=== PATIENT | male | born 1965 | race African-American/Black ===

== ENCOUNTER 2017-03-22 08:51 | Inpatient (IN) | payer BC ==
[2017-03-22 09:50] VITALS: BMI 28.7
--- NOTE | 2017-03-22 13:58 | HP ---
CIWA Score - CIWA Score Nausea/Vomitin-No Nausea/No Vomiting Muscle Tremors: 4-Moderate,w/Arms Extend Anxiety: 2 Agitation: 1-Slight > Activity Paroxysmal Sweats: 3 Orientation: 0-Oriented Tacttile Disturbances: 2-Mild Itch/Numbness/Burn Auditory Disturbances: 0-None Visual Disturbances: 3-Moderate Sensitivity Headache: 0-None Present CIWA-Ar Total Score: 15 Admission ROS BHS - HPI Chief Complaint: "I'm here to clean my act up and to take care of myself." Patient is here to Detox from Alcohol. Allergies/Adverse Reactions: Allergies Allergy/AdvReac Type Severity Reaction Status Date / Time shrimp Allergy Intermediate Difficulty Verified 03/22/17 12:41 Breathing History of Present Illness: Patient is a 51 YO male here to Detox from Alcohol. This is patient's first detox admission at [facility]. Patient had a Detox admissions at [facility] (2013), [facility] in [address] [facility] in 2008. Longest Period of sobriety in recent years: approx. 1 year (2013). Exam Limitations: No Limitations - Ebola screening Have you traveled outside of the country in the last 21 days: No (N) Have you had contact with anyone from an Ebola affected area: No Have you been sick,other than usual withdrawal symptoms: No Do you have a fever: No - Review of Systems Constitutional: Diaphoresis, Loss of Appetite, Malaise, Unintentional Wgt. Loss (Lost approx. 15 lbs. over last 4 months.) EENT: reports: Blurred Vision Respiratory: reports: SOB with Exertion, Productive cough Cardiac: reports: No Symptoms Reported GI: reports: No Symptoms Reported : reports: No Symptoms Reported Musculoskeletal: reports: No Symptoms Reported Integumentary: reports: No Symptoms Reported Neuro: reports: No Symptoms reported, Tremors Endocrine: reports: No Symptoms Reported Hematology: reports: No Symptoms Reported Psychiatric: reports: Judgement Intact, Mood/Affect Appropiate, Orientated x3 Other Systems: Reviewed and Negative Patient History - Patient Medical History Hx Anemia: No Hx Asthma: Yes (Uses Albuterol Inhaler.) Hx Chronic Obstructive Pulmonary Disease (COPD): No Hx Cancer: No Hx Cardiac Disorders: No Hx Congestive Heart Failure: No Hx Hypertension: No Hx Hypercholesterolemia: No Hx Pacemaker: No HX Cerebrovascular Accident: No Hx Seizures: No Hx Dementia: No Hx Diabetes: Yes (Metformin; Took Lantus Insulin in past, but not for approx. last 6 months.) Hx Gastrointestinal Disorders: No Hx Liver Disease: No Hx Genitourinary Disorders: No Hx Sexually Transmitted Disorders: No Hx Renal Disease (ESRD): No Hx Thyroid Disease: No Hx Human Immunodeficiency Virus (HIV): No (Last Tested: 11/2016: NEGATIVE.) Hx Hepatitis C: No (Last Tested: 11/2016: NEGATIVE.) Hx Depression: No Hx Suicide Attempt: No (PATIENT DENIES CURRENT SI / HI.) Hx Bipolar Disorder: No Hx Schizophrenia: No Other Medical History: DENIES. - Patient Surgical History Past Surgical History: Yes Hx Neurologic Surgery: No Hx Cataract Extraction: No Hx Cardiac Surgery: No Hx Lung Surgery: No Hx Breast Surgery: No Hx Breast Biopsy: No Hx Abdominal Surgery: No Hx Appendectomy: No Hx Cholecystectomy: No Hx Genitourinary Surgery: No Hx Orthopedic Surgery: No Other Surgical History: LFT FOOT AMPUTATION 2 TOES (1995). Anesthesia Reaction: No - PPD History Previous Implant?: No (2016) Documented Results: Negative w/o proof Implanted On Prior [facility] Admission?: No PPD to be Administered?: Yes - Reproductive History Patient is a Female of Child Bearing Age (11 -55 yrs old): No (PATIENT IS MALE.) - Smoking Cessation Smoking history: Current every day smoker Have you smoked in the past 12 months: Yes Aproximately how many cigarettes per day: 20 Cigars Per Day: 0 Hx Chewing Tobacco Use: Yes Initiated information on smoking cessation: Yes 'Breaking Loose' booklet given: 03/22/17 (GIVEN TO PATIENT.) - Substance & Tx. History Hx Alcohol Use: Yes Hx Substance Use: Yes Substance Use Type: Alcohol, Cocaine, Marijuana Hx Substance Use Treatment: Yes (Previous detox admissions; Most recent: [facility] (2013).) - Substances Abused Alcohol Route: Oral Frequency: Daily Amount used: 3 BEER A DAY Age of first use: 15 Date of Last Use: 03/21/17 Crack Route: Inhalation Frequency: 1-2 times per week Amount used: 2 BAGS Age of first use: 15 Date of Last Use: 03/21/17 Marijuana/Hashish Route: Smoking Frequency: 1-2 times per week Amount used: 2 JOINTS A WEEK Age of first use: 15 Date of Last Use: 03/21/17 Family Disease History - Family Disease History Family Disease History: Diabetes: Mother (HTN; .), Heart Disease: Mother , Other: Father (Used Alcohol, .) Admission Physical Exam [facility] - Vital Signs Vital Signs: Vital Signs - 24 hr 03/22/17 09:48 Temperature 96.4 F L Pulse Rate 78 Respiratory 20 Rate Blood Pressure 137/78 - Physical General Appearance: Yes: No Apparent Distress, Nourished, Appropriately Dressed , Tremorous HEENTM: Yes: Hearing grossly Normal, Normocephalic, Normal Voice, TOM, Pharynx Normal Respiratory: Yes: Chest Non-Tender, Lungs Clear, No Respiratory Distress, No Accessory Muscle Use Neck: Yes: No masses,lesions,Nodules, Supple, Trachea in good position Breast: Yes: Breast Exam Deferred Cardiology: Yes: Regular Rhythm, Regular Rate, S1, S2 Abdominal: Yes: Normal Bowel Sounds, Non Tender, Soft, Protuberent Genitourinary: Yes: Within Normal Limits Back: Yes: Normal Inspection Musculoskeletal: Yes: full range of Motion, Gait Steady Extremities: Yes: Normal Range of Motion, Non-Tender, Tremors Neurological: Yes: Fully Oriented, Alert, Normal Mood/Affect, Normal Response Integumentary: Yes: Normal Color, Dry, Warm Lymphatic: Yes: Within Normal Limits - Diagnostic (1) Alcohol dependence with uncomplicated withdrawal Current Visit: Yes Status: Acute (2) Cocaine dependence, uncomplicated Current Visit: Yes Status: Acute (3) Cannabis dependence, uncomplicated Current Visit: Yes Status: Acute (4) Nicotine dependence Current Visit: Yes Status: Chronic Qualifiers: Nicotine product type: cigarettes Substance use status: uncomplicated Qualified Code(s): F17.210 - Nicotine dependence, cigarettes, uncomplicated (5) History of type 2 diabetes mellitus Current Visit: Yes Status: Chronic (6) Asthma Current Visit: Yes Status: Chronic Qualifiers: Asthma severity: mild Asthma persistence: intermittent Asthma complication type: uncomplicated Qualified Code(s): J45.20 - Mild intermittent asthma, uncomplicated (7) History of amputation of lesser toe Current Visit: Yes Status: Resolved Qualifiers: Laterality: left Qualified Code(s): Z89.422 - Acquired absence of other left toe(s) Cleared for Admission [facility] - Detox or Rehab [facility] Level of Care: Medically Managed Detox Regimen/Protocol: Librium BHS Breath Alcohol Content Breath Alcohol Content: 0 Urine Drug Screen - Results Drug Screen Negative: No Urine Drug Screen Results: KEISHA-Cocaine
[2017-03-22] MEDS ORDERED: chlordiazePOXIDE HCL 25 MG CAPSULE PO PRN (14:34)
[2017-03-22] MEDS ORDERED: MAG HYDROX/AL HYDROX/SIMETH 30 ML UNIT-DOSE CUP PO PRN (14:34)
[2017-03-22] MEDS ORDERED: P-EPHED 60MG/TRIPROLIDI 2.5MG TABLET PO PRN (14:34)
[2017-03-22] MEDS ORDERED: ACETAMINOPHEN 325 MG TABLET (FP) PO PRN (14:34)
[2017-03-22] MEDS ORDERED: NICOTINE POLACRILEX 2 MG GUM BUC PRN (14:34)
[2017-03-22] MEDS ORDERED: MAGNESIUM HYDROX 2400MG/30ML ORAL SUSPENSION 30 ML CUP PO PRN (14:34)
[2017-03-22] MEDS ORDERED: MAGNESIUM CITRATE 300 ML BOTTLE PO PRN (14:34)
[2017-03-22] MEDS ORDERED: IBUPROFEN 400 MG TABLET (FP) PO PRN (14:34)
[2017-03-22] MEDS ORDERED: LOPERAMIDE HCL 2 MG CAPSULE PO PRN (14:34)
[2017-03-22] MEDS ORDERED: MENTHOL/PHENOL 1 EACH UD MM PRN (14:34)
[2017-03-22] MEDS ORDERED: guaiFENesin/D-METHORPHAN HB 10 ML UNIT-DOSE CUPS PO PRN (14:34)
[2017-03-22] MEDS ORDERED: ALBUTEROL SO4 18 GM HFA INHALER IH PRN (14:37)
[2017-03-22] MEDS ORDERED: chlordiazePOXIDE HCL 25 MG CAPSULE PO ONE (14:40)
[2017-03-22] MEDS: chlordiazePOXIDE HCL 25 MG CAPSULE PO SCH ×2 (16:11→22:20)
[2017-03-22] MEDS: metFORMIN HCL 500 MG TABLET (FP) PO SCH (16:16)
[2017-03-22] MEDS: AMMONIUM LACTATE 12% LOTION 225 GM BOTTLE TP SCH (16:16)
[2017-03-22] MEDS: INSULIN SLIDING SCALE (NOVOLOG) 1 VIAL SQ SCH (16:17)
[2017-03-22 16:50] LABS: URINE APPEARANCE CLEAR; URINE BILIRUBIN NEGATIVE (NEGATIVE); URINE BLOOD NEGATIVE (NEGATIVE); URINE COLOR YELLOW; URINE GLUCOSE (UA) NEGATIVE (NEGATIVE); URINE KETONE NEGATIVE (NEGATIVE); URINE LEUK ESTERASE NEGATIVE (NEGATIVE); URINE NITRITE NEGATIVE (NEGATIVE); URINE PROTEIN NEGATIVE (NEGATIVE); URINE UROBILINOGEN NEGATIVE mg/dL (0.2-1.0)
[2017-03-22 16:54] LABS: HEMATOCRIT 43.9 % (35.4-49); HEMOGLOBIN 14.7 GM/dL (11.7-16.9); MCH 31.2 pg (25.7-33.7); MCHC 33.5 g/dl (32.0-35.9); MEAN CELL VOLUME 93.2 fl (80-96); MEAN PLT VOLUME 9.5 fl (7.5-11.1); PLATELET COUNT 230 K/MM3 (134-434); RBC 4.71 M/mm3 (4.00-5.60); RDW 14.7 % (11.9-15.9); WHITE BLOOD COUNT 6.2 K/mm3 (4.0-10.0)
[2017-03-22 17:06] LABS: ALBUMIN 3.2 g/dl (3.4-5.0); ANION GAP 8 (8-16); BILIRUBIN,TOTAL 0.8 mg/dL (0.2-1.0); BLOOD UREA NITROGEN 11 mg/dL (7-18); CALCIUM 9.1 mg/dL (8.5-10.1); CHLORIDE 106 mmol/L (98-107); CO2 28 mmol/L (21-32); GLUCOSE,RANDOM 129 mg/dL (74-106); POTASSIUM 4.2 mmol/L (3.5-5.1); SGOT/AST 14 U/L (15-37); SGPT/ALT 17 U/L (12-78); SODIUM 142 mmol/L (136-145); TOT PROT 6.4 g/dl (6.4-8.2)
[2017-03-22 17:07] LABS: ALK PHOS 81 U/L (45-117)
[2017-03-22] MEDS: THIAMINE HCL 100 MG TABLET (FP) PO SCH (22:20)
[2017-03-23] MEDS: chlordiazePOXIDE HCL 25 MG CAPSULE PO SCH ×4 (05:59→22:19)
[2017-03-23] MEDS: metFORMIN HCL 500 MG TABLET (FP) PO SCH ×2 (07:05→18:16)
[2017-03-23] MEDS ORDERED: INSULIN (NOVOLOG) ASPART 100 UNITS/ML 10ML VIAL ONE (07:31)
[2017-03-23] MEDS: INSULIN SLIDING SCALE (NOVOLOG) 1 VIAL SQ SCH ×2 (08:00→17:45)
--- NOTE | 2017-03-23 09:54 | EKG ---
Test Reason : Blood Pressure : / mmHG Vent. Rate : 075 BPM Atrial Rate : 075 BPM P-R Int : 184 ms QRS Dur : 130 ms QT Int : 366 ms P-R-T Axes : 075 074 054 degrees QTc Int : 408 ms NORMAL SINUS RHYTHM NON-SPECIFIC INTRA-VENTRICULAR CONDUCTION BLOCK ABNORMAL ECG NO PREVIOUS ECGS AVAILABLE Confirmed by NATALIYA YU MD ([id number]) on 03/23/2017 9:53:51 AM Referred By: Confirmed By:NATALIYA YU MD
--- NOTE | 2017-03-23 10:32 | PN ---
S CIWA - CIWA Score Nausea/Vomitin Muscle Tremors: 3 Anxiety: 3 Agitation: 3 Paroxysmal Sweats: 3 Orientation: 0-Oriented Tacttile Disturbances: 1-Very Mild Itch/Numbness Auditory Disturbances: 0-None Visual Disturbances: 0-None Headache: 1-Very Mild CIWA-Ar Total Score: 17 S Progress Note (SOAP) Subjective: nausea, sweats, interrutped sleep, anxiety, tremors Objective: 03/23/17 10:31 Vital Signs - 24 hr 03/22/17 03/22/17 03/22/17 15:29 17:55 22:18 Temperature 97.3 F L 98.5 F 98.1 F Pulse Rate 79 75 74 Respiratory 18 16 18 Rate Blood Pressure 142/100 112/60 148/85 03/23/17 03/23/17 03/23/17 00:30 03:30 06:57 Temperature 98.4 F Pulse Rate 78 Respiratory 18 18 19 Rate Blood Pressure 109/50 03/23/17 09:32 Temperature 97.7 F Pulse Rate 84 Respiratory 18 Rate Blood Pressure 129/75 Laboratory Tests 03/22/17 03/22/17 03/22/17 14:04 15:00 15:00 WBC 6.2 RBC 4.71 Hgb 14.7 Hct 43.9 MCV 93.2 MCH 31.2 MCHC 33.5 RDW 14.7 Plt Count 230 MPV 9.5 Sickle Cell Screen Negative Sodium Potassium Chloride Carbon Dioxide Anion Gap BUN Creatinine Creat Clearance w eGFR POC Glucometer 291 Random Glucose Calcium Total Bilirubin AST ALT Alkaline Phosphatase Total Protein Albumin Urine Color Urine Appearance Urine pH Ur Specific [place] Urine Protein Urine Glucose (UA) Urine Ketones Urine Blood Urine Nitrite Urine Bilirubin Urine Urobilinogen Ur Leukocyte Esterase RPR Titer 03/22/17 03/22/17 03/22/17 15:00 15:00 15:40 WBC RBC Hgb Hct MCV MCH MCHC RDW Plt Count MPV Sickle Cell Screen Sodium 142 Potassium 4.2 Chloride 106 Carbon Dioxide 28 Anion Gap 8 BUN 11 Creatinine 1.0 Creat Clearance w eGFR > 60 POC Glucometer Random Glucose 129 H Calcium 9.1 Total Bilirubin 0.8 AST 14 L ALT 17 Alkaline Phosphatase 81 Total Protein 6.4 Albumin 3.2 L Urine Color Yellow Urine Appearance Clear Urine pH 6.0 Ur Specific [place] 1.019 Urine Protein Negative Urine Glucose (UA) Negative Urine Ketones Negative Urine Blood Negative Urine Nitrite Negative Urine Bilirubin Negative Urine Urobilinogen Negative Ur Leukocyte Esterase Negative RPR Titer Nonreactive 03/22/17 03/23/17 16:11 06:00 WBC RBC Hgb Hct MCV MCH MCHC RDW Plt Count MPV Sickle Cell Screen Sodium Potassium Chloride Carbon Dioxide Anion Gap BUN Creatinine Creat Clearance w eGFR POC Glucometer 128 157 Random Glucose Calcium Total Bilirubin AST ALT Alkaline Phosphatase Total Protein Albumin Urine Color Urine Appearance Urine pH Ur Specific [place] Urine Protein Urine Glucose (UA) Urine Ketones Urine Blood Urine Nitrite Urine Bilirubin Urine Urobilinogen Ur Leukocyte Esterase RPR Titer Assessment: 03/23/17 10:31 withdrawal sx - cont detox, fluids, encourage ambualtion
[2017-03-23] MEDS: AMMONIUM LACTATE 12% LOTION 225 GM BOTTLE TP SCH (10:49)
[2017-03-23] MEDS: PRENATAL VITAMINS W/ FOLIC ACID TABLET (FP) PO SCH (10:49)
[2017-03-23] MEDS: THIAMINE HCL 100 MG TABLET (FP) PO SCH (22:19)
[2017-03-24] MEDS: chlordiazePOXIDE HCL 25 MG CAPSULE PO SCH ×2 (05:37→10:41)
[2017-03-24] MEDS: metFORMIN HCL 500 MG TABLET (FP) PO SCH ×2 (07:31→17:05)
[2017-03-24] MEDS: INSULIN SLIDING SCALE (NOVOLOG) 1 VIAL SQ SCH ×2 (07:31→17:12)
[2017-03-24] MEDS: PRENATAL VITAMINS W/ FOLIC ACID TABLET (FP) PO SCH (10:41)
[2017-03-24] MEDS: AMMONIUM LACTATE 12% LOTION 225 GM BOTTLE TP SCH (10:41)
--- NOTE | 2017-03-24 14:19 | PN ---
BHS CIWA - CIWA Score Nausea/Vomitin Muscle Tremors: 3 Anxiety: 4-Mod. Anxious/Guarded Agitation: 3 Paroxysmal Sweats: 1-Minimal Palms Moist Orientation: 0-Oriented Tacttile Disturbances: 0-None Auditory Disturbances: 0-None Visual Disturbances: 0-None Headache: 0-None Present CIWA-Ar Total Score: 13 BHS Progress Note (SOAP) Subjective: shakes sleep diisturbance Objective: 03/24/17 14:18 Vital Signs Temperature 97.7 F 03/24/17 11:19 Pulse Rate 74 03/24/17 11:19 Respiratory Rate 20 03/24/17 11:19 Blood Pressure 142/95 03/24/17 11:19 O2 Sat by Pulse Oximetry (%) Assessment: 03/24/17 14:19 withdrawal sx Plan: detox
[2017-03-24] MEDS: chlordiazePOXIDE 5 MG CAPSULE PO SCH ×2 (17:05→22:33)
[2017-03-24] MEDS ORDERED: INSULIN (NOVOLOG) ASPART 100 UNITS/ML 10ML VIAL ONE (17:09)
[2017-03-24] MEDS: THIAMINE HCL 100 MG TABLET (FP) PO SCH (22:33)
[2017-03-25] MEDS: metFORMIN HCL 500 MG TABLET (FP) PO SCH ×2 (06:00→17:05)
[2017-03-25] MEDS: chlordiazePOXIDE 5 MG CAPSULE PO SCH ×2 (06:00→11:06)
[2017-03-25] MEDS: INSULIN SLIDING SCALE (NOVOLOG) 1 VIAL SQ SCH ×2 (06:02→17:06)
[2017-03-25] MEDS: PRENATAL VITAMINS W/ FOLIC ACID TABLET (FP) PO SCH (11:06)
[2017-03-25] MEDS: AMMONIUM LACTATE 12% LOTION 225 GM BOTTLE TP SCH (11:07)
--- NOTE | 2017-03-25 12:27 | PN ---
BHS Progress Note (SOAP) Subjective: tremor sweat anxiety Objective: 03/25/17 12:26 Vital Signs Temperature 95.9 F L 03/25/17 10:00 Pulse Rate 85 03/25/17 10:00 Respiratory Rate 20 03/25/17 10:00 Blood Pressure 144/77 03/25/17 10:00 O2 Sat by Pulse Oximetry (%) Laboratory Last Values WBC 6.2 K/mm3 (4.0-10.0) 03/22/17 15:00 RBC 4.71 M/mm3 (4.00-5.60) 03/22/17 15:00 Hgb 14.7 GM/dL (11.7-16.9) 03/22/17 15:00 Hct 43.9 % (35.4-49) 03/22/17 15:00 MCV 93.2 fl (80-96) 03/22/17 15:00 MCH 31.2 pg (25.7-33.7) 03/22/17 15:00 MCHC 33.5 g/dl (32.0-35.9) 03/22/17 15:00 RDW 14.7 % (11.9-15.9) 03/22/17 15:00 Plt Count 230 K/MM3 (134-434) 03/22/17 15:00 MPV 9.5 fl (7.5-11.1) 03/22/17 15:00 Sickle Cell Screen Negative (NEGATIVE) 03/22/17 15:00 Sodium 142 mmol/L (136-145) 03/22/17 15:00 Potassium 4.2 mmol/L (3.5-5.1) 03/22/17 15:00 Chloride 106 mmol/L (98-107) 03/22/17 15:00 Carbon Dioxide 28 mmol/L (21-32) 03/22/17 15:00 Anion Gap 8 (8-16) 03/22/17 15:00 BUN 11 mg/dL (7-18) 03/22/17 15:00 Creatinine 1.0 mg/dL (0.7-1.3) 03/22/17 15:00 Creat Clearance w eGFR > 60 (>60) 03/22/17 15:00 POC Glucometer 146 UNITS (80-120) 03/25/17 06:02 Random Glucose 129 mg/dL (74-106) H 03/22/17 15:00 Calcium 9.1 mg/dL (8.5-10.1) 03/22/17 15:00 Total Bilirubin 0.8 mg/dL (0.2-1.0) 03/22/17 15:00 AST 14 U/L (15-37) L 03/22/17 15:00 ALT 17 U/L (12-78) 03/22/17 15:00 Alkaline Phosphatase 81 U/L (45-117) 03/22/17 15:00 Total Protein 6.4 g/dl (6.4-8.2) 03/22/17 15:00 Albumin 3.2 g/dl (3.4-5.0) L 03/22/17 15:00 Urine Color Yellow 03/22/17 15:40 Urine Appearance Clear 03/22/17 15:40 Urine pH 6.0 (5.0-8.0) 03/22/17 15:40 Ur Specific [place] 1.019 (1.001-1.035) 03/22/17 15:40 Urine Protein Negative (NEGATIVE) 03/22/17 15:40 Urine Glucose (UA) Negative (NEGATIVE) 03/22/17 15:40 Urine Ketones Negative (NEGATIVE) 03/22/17 15:40 Urine Blood Negative (NEGATIVE) 03/22/17 15:40 Urine Nitrite Negative (NEGATIVE) 03/22/17 15:40 Urine Bilirubin Negative (NEGATIVE) 03/22/17 15:40 Urine Urobilinogen Negative mg/dL (0.2-1.0) 03/22/17 15:40 Ur Leukocyte Esterase Negative (NEGATIVE) 03/22/17 15:40 RPR Titer Nonreactive (NONREACTIVE) 03/22/17 15:00 lab noted Assessment: 03/25/17 12:27 withdrawal sx Plan: medically supervised detox
[2017-03-25] MEDS ORDERED: INSULIN (NOVOLOG) ASPART 100 UNITS/ML 10ML VIAL ONE (16:44)
[2017-03-25] MEDS: chlordiazePOXIDE HCL 10 MG CAPSULE PO SCH ×2 (17:05→22:52)
[2017-03-25] MEDS: THIAMINE HCL 100 MG TABLET (FP) PO SCH (22:52)
[2017-03-26] MEDS: chlordiazePOXIDE HCL 10 MG CAPSULE PO SCH (06:02)
[2017-03-26] MEDS ORDERED: INSULIN (NOVOLOG) ASPART 100 UNITS/ML 10ML VIAL ONE (06:06)
[2017-03-26] MEDS: metFORMIN HCL 500 MG TABLET (FP) PO SCH (06:08)
[2017-03-26] MEDS: INSULIN SLIDING SCALE (NOVOLOG) 1 VIAL SQ SCH (06:09)
[2017-03-26] MEDS: PRENATAL VITAMINS W/ FOLIC ACID TABLET (FP) PO SCH (09:47)
[2017-03-26] MEDS: AMMONIUM LACTATE 12% LOTION 225 GM BOTTLE TP SCH (09:48)
--- NOTE | 2017-03-26 09:51 | DS ---
[facility] Detox Discharge Summary Admission Date: 03/22/17 Discharge Date: 03/26/17 - Physical Exam Results Vital Signs: Vital Signs Temperature 98.1 F 03/26/17 06:12 Pulse Rate 69 03/26/17 06:12 Respiratory Rate 18 03/26/17 06:12 Blood Pressure 127/74 03/26/17 06:12 O2 Sat by Pulse Oximetry (%) - Medication Discharge Medications: Ambulatory Orders Albuterol Sulfate Inhaler - [Ventolin HFA Inhaler -] 2 inh IH Q4H PRN 03/22/17 Metformin 500 tab PO BID 03/22/17 - Diagnosis (1) Alcohol dependence with uncomplicated withdrawal Current Visit: Yes Status: Acute (2) Nicotine dependence Current Visit: Yes Status: Chronic Qualifiers: Nicotine product type: cigarettes Substance use status: uncomplicated Qualified Code(s): F17.210 - Nicotine dependence, cigarettes, uncomplicated
[2017-03-26 10:45] VITALS: BP 153/76; PULSE 80; TEMP 98.8
== END 2017-03-26 10:12 | disposition home or self-care (01) | DRG 774 ==
LOC: YASAS 08:51 → Y6N 14:18
PROVIDERS: ADMIT Internal Medicine; ATTEND Internal Medicine
PROC: HZ2ZZZZ Detoxification Services for Substance Abuse Treatment (ICD-10-PCS; principal; 2017-03-22)
DX: F10.230 Alcohol dependence with withdrawal, uncomplicated (principal); F14.20 Cocaine dependence, uncomplicated; F12.20 Cannabis dependence, uncomplicated; F17.210 Nicotine dependence, cigarettes, uncomplicated; J45.20 Mild intermittent asthma, uncomplicated; E11.9 Type 2 diabetes mellitus without complications; Z89.422 Acquired absence of other left toe(s); Z91.013 Allergy to seafood; Z79.84 Long term (current) use of oral hypoglycemic drugs
CPT/HCPCS: 36415; 80053; 81003; 82962; 85027; 85660; 86593; 93005; 93010